=== PATIENT | female | born 1945 | race Two or more races ===

== ENCOUNTER → 2017-08-21 | Outpatient (CLI) | payer MEDICARE, MEDICAID ==
[2017-08-21 12:48] LABS: Urine Bilirubin Negative (Negative); Urine Blood Negative /uL (Negative); Urine Color Yellow (Yellow); Urine Glucose Normal (Normal); Urine Ketone Negative (Negative); Urine Nitrite Negative (Negative); Urine Urobilinogen Normal (Negative); Urine pH 7.5 (5.0-8.0)
[2017-08-21 12:53] LABS: Basophils # (auto) 0 uL; Basophils % (auto) 0.2 % (0.0-2.0); Eosinophils # (auto) 0.1 uL; Eosinophils % (auto) 1.8 % (0.0-7.0); Hematocrit 40.5 % (36.0-46.0); Lymphocytes # (auto) 1.2 uL; Lymphocytes % (auto) 26.8 % (10.0-50.0); Mean Corpuscular Hemoglobin 27.5 pg (28.0-32.0); Mean Corpuscular Volume 85.8 fL (80.0-100.0); Mean Platelet Volume 8.2 fL (6.9-10.8); Monocytes # (auto) 0.4 uL; Monocytes % (auto) 8.3 % (0.0-12.0); Neutrophils # (auto) 2.8 uL; Neutrophils % (auto) 62.9 % (37.0-80.0); Nucleated Red Blood Cells % 0.5 %; Platelet Count (auto) 191 10^3/uL (140-450); Red Cell Distribution Width 15.5 % (11.8-14.3); White Blood Cell 4.5 10^3/uL (4.4-10.8)
[2017-08-21 13:05] LABS: Albumin 3.9 g/dL (3.4-5.0); BUN/Creatinine Ratio 11.4; Calcium 8.9 mg/dL (8.5-10.1); Total Protein 7.2 g/dL (6.4-8.2)
== END | disposition home or self-care (01) ==
LOC: LAB 08:43
PROVIDERS: ATTEND Internal Medicine Cardiovascular Disease
DX: I10 Essential (primary) hypertension (principal); E11.9 Type 2 diabetes mellitus without complications; E55.9 Vitamin D deficiency, unspecified; E78.00 Pure hypercholesterolemia, unspecified; K74.1 Hepatic sclerosis; E03.9 Hypothyroidism, unspecified; D64.9 Anemia, unspecified; N39.0 Urinary tract infection, site not specified; D51.9 Vitamin B12 deficiency anemia, unspecified; R79.1 Abnormal coagulation profile
CPT/HCPCS: 36415; 80053; 80061; 81003; 82306; 82607; 83036; 84436; 84443; 85025

== ENCOUNTER 2017-09-23 23:15 | Emergency (ER) | payer MEDICAID, MEDICARE ==
[~2017-09-23] VITALS: Ht 165.1 cm; Wt 83.9 kg
[2017-09-23 23:55] LABS: Basophils # (auto) 0 uL; Basophils % (auto) 0.5 % (0.0-2.0); Eosinophils # (auto) 0 uL; Eosinophils % (auto) 0.1 % (0.0-7.0); Hematocrit 39.1 % (36.0-46.0); Hemoglobin 12.8 g/dL (12.2-16.2); Lymphocytes # (auto) 0.5 uL; Mean Corpuscular Hemoglobin 27.4 pg (28.0-32.0); Mean Corpuscular Hgb Conc. 32.7 g/dL (32.0-36.0); Mean Corpuscular Volume 83.8 fL (80.0-100.0); Mean Platelet Volume 7.8 fL (6.9-10.8); Monocytes # (auto) 0.4 uL; Monocytes % (auto) 5.5 % (0.0-12.0); Neutrophils # (auto) 6.9 uL; Neutrophils % (auto) 87.9 % (37.0-80.0); Platelet Count (auto) 140 10^3/uL (140-450); Red Cell Distribution Width 15.5 % (11.8-14.3); White Blood Cell 7.9 10^3/uL (4.4-10.8)
[2017-09-24 00:11] LABS: INR 1.39 (0.9-1.15); Partial Thromboplastin Time 34.1 sec (22.64-33.71); Prothrombin Time 15.2 sec (9.37-12.3)
[2017-09-24 00:13] LABS: Albumin 3.3 g/dL (3.4-5.0); Calcium 7.8 mg/dL (8.5-10.1); Potassium 3.3 mmol/L (3.5-5.1)
[2017-09-24 00:14] LABS: Temperature: 21.3 C (20.0-25.0)
[2017-09-24 00:16] LABS: BUN/Creatinine Ratio 13.6; Total Protein 6.9 g/dL (6.4-8.2)
[2017-09-24] MEDS ORDERED: LEVOFLOXACIN 750MG 150 ML IV ONE (01:30)
[2017-09-24] MEDS ORDERED: PROMETHAZINE W/CODEINE 5 ML ORAL SYRUP PO ONE (01:30)
[2017-09-24] MEDS ORDERED: SERT-274 PO (01:36)
[2017-09-24] MEDS ORDERED: DONE5TAB28 PO (01:36)
[2017-09-24] MEDS ORDERED: BISO5TAB44 PO (01:36)
[2017-09-24] MEDS ORDERED: ATOR20TA50 PO (01:36)
[2017-09-24] MEDS ORDERED: WARF3TAB22 PO (01:36)
[2017-09-24] MEDS ORDERED: AMIO200T33 PO (01:36)
[2017-09-24] MEDS ORDERED: HYDR50TA15 PO (01:36)
[2017-09-24] MEDS ORDERED: ACETAMINOPHEN 325 MG TAB PO ONE (02:30)
[2017-09-24] MEDS ORDERED: FUROSEMIDE 20 MG/2 ML VIAL IV ONE ×2 (02:45→03:15)
[2017-09-24] MEDS ORDERED: POTASSIUM CHL 20 Meq TABLET PO ONE (03:15)
[2017-09-24 04:12] VITALS: BP 118/82
== END 2017-09-24 03:23 | disposition home or self-care (01) ==
LOC: ER 23:17
DX: J18.1 Lobar pneumonia, unspecified organism (principal); I48.91 Unspecified atrial fibrillation; I11.0 Hypertensive heart disease with heart failure; I50.9 Heart failure, unspecified; D72.829 Elevated white blood cell count, unspecified; E87.1 Hypo-osmolality and hyponatremia; E87.6 Hypokalemia; K72.90 Hepatic failure, unspecified without coma; Z79.899 Other long term (current) drug therapy
CPT/HCPCS: 36415; 71010; 80053; 83735; 83880; 84484; 85025; 85610; 85730; 93005; 94761; 96365; 96375; 96376; 99285; J1940; J1956

== ENCOUNTER → 2017-10-19 | Outpatient (CLI) | payer MEDICARE, MEDICAID ==
[~2017-10-19] MED LIST: AMIO200T33 PO; ATOR20TA50 PO; BISO5TAB44 PO; DONE5TAB31 PO; HYDR50TA15 PO; SERT-274 PO; WARF2TAB49 PO; WARF3TAB22 PO
== END | disposition home or self-care (01) ==
LOC: Rad HDHVI 07:48
PROVIDERS: ATTEND Internal Medicine Cardiovascular Disease
DX: I36.1 Nonrheumatic tricuspid (valve) insufficiency (principal); I05.0 Rheumatic mitral stenosis; E78.5 Hyperlipidemia, unspecified
CPT/HCPCS: 93306

== ENCOUNTER → 2017-11-02 | Outpatient (CLI) | payer MEDICARE, MEDICAID ==
[~2017-11-02] VITALS: Ht 165.1 cm; Wt 83.9 kg
[~2017-11-02] MED LIST changes: +ADENOSINE 70 MG in GIVE UN-DILUTED 0 ML IV ONE; +ADENOSINE 90 MG/30 ML INJ IV ONE
== END | disposition home or self-care (01) ==
LOC: Rad HDHVI 08:10
PROVIDERS: ATTEND Internal Medicine Cardiovascular Disease
DX: I10 Essential (primary) hypertension (principal); I49.8 Other specified cardiac arrhythmias; E78.5 Hyperlipidemia, unspecified; G30.0 Alzheimer's disease with early onset; Z90.710 Acquired absence of both cervix and uterus; Z86.79 Personal history of other diseases of the circulatory system
CPT/HCPCS: 78452; 93005; 96374; 96375; A9500; J0153

== ENCOUNTER → 2017-12-07 | Outpatient (CLI) | payer MEDICARE, MEDICAID ==
[~2017-12-07] MED LIST changes: -ADENOSINE 70 MG in GIVE UN-DILUTED 0 ML IV ONE; -ADENOSINE 90 MG/30 ML INJ IV ONE
[2017-12-07 08:25] VITALS: BP 156/70
[2017-12-07 08:55] VITALS: BP 156/70
== END | disposition home or self-care (01) ==
LOC: CHF HDHVI 08:19
PROVIDERS: ATTEND Internal Medicine Cardiovascular Disease
DX: I48.91 Unspecified atrial fibrillation (principal); I25.10 Atherosclerotic heart disease of native coronary artery without angina pectoris; I10 Essential (primary) hypertension
CPT/HCPCS: 85610; G0463

== ENCOUNTER → 2017-12-11 | Outpatient (CLI) | payer MEDICARE, MEDICAID ==
[2017-12-11 13:20] VITALS: BP 140/71
[2017-12-11 13:50] VITALS: BP 140/70
[2017-12-11 16:13] LABS: Basophils # (auto) 0 uL; Basophils % (auto) 0.7 % (0.0-2.0); Calcium 8.6 mg/dL (8.5-10.1); Eosinophils # (auto) 0.1 uL; Hematocrit 38.9 % (36.0-46.0); Hemoglobin 12.6 g/dL (12.2-16.2); INR 1.08 (0.9-1.15); Lymphocytes # (auto) 1.1 uL; Lymphocytes % (auto) 21.6 % (10.0-50.0); Mean Corpuscular Hemoglobin 27.3 pg (28.0-32.0); Mean Corpuscular Hgb Conc. 32.3 g/dL (32.0-36.0); Mean Corpuscular Volume 84.4 fL (80.0-100.0); Monocytes # (auto) 0.7 uL; Monocytes % (auto) 12.4 % (0.0-12.0); Neutrophils # (auto) 3.4 uL; Neutrophils % (auto) 64.3 % (37.0-80.0); Nucleated Red Blood Cells % 0.4 %; Platelet Count (auto) 235 10^3/uL (140-450); Potassium 4.1 mmol/L (3.5-5.1); Prothrombin Time 11.8 sec (9.37-12.3); Red Blood Cells 4.61 10^6/uL (4.0-5.20); Red Cell Distribution Width 16.3 % (11.8-14.3); White Blood Cell 5.3 10^3/uL (4.4-10.8)
[2017-12-11 16:15] LABS: BUN/Creatinine Ratio 20.6
== END | disposition home or self-care (01) ==
LOC: Rad HDHVI 13:05
PROVIDERS: ATTEND Internal Medicine Cardiovascular Disease
DX: Z01.818 Encounter for other preprocedural examination (principal); I70.0 Atherosclerosis of aorta; I51.7 Cardiomegaly; D64.9 Anemia, unspecified; R79.1 Abnormal coagulation profile; I10 Essential (primary) hypertension
CPT/HCPCS: 36415; 71046; 80048; 85025; 85610; 85730; 93005; G0463

== ENCOUNTER 2017-12-12 08:49 | Day surgery (SDC) | payer MEDICARE, MEDICAID ==
[~2017-12-12] VITALS: Ht 162.6 cm; Wt 85.0 kg
[2017-12-12] MEDS ORDERED: IOHEXOL 350 MG/ML 100ML IJ ONE (11:05)
[2017-12-12] MEDS ORDERED: LIDOCAINE 2%HCL (LOCAL ANESTH.) INJ 20ML MDV ONE (11:06)
[2017-12-12] MEDS ORDERED: ANGIOMAX 250 MG VIAL IV ONE (11:19)
[2017-12-12] MEDS ORDERED: fentaNYL CITRATE 100 MCG/2 ML VL ONE (11:20)
[2017-12-12] MEDS ORDERED: MIDAZOLAM HCL 1MG/1ML-2 ML VIAL ONE (11:20)
== END 2017-12-12 14:40 | disposition home or self-care (01) ==
LOC: CATH 08:49
PROVIDERS: ATTEND Internal Medicine
DX: I05.0 Rheumatic mitral stenosis (principal); I48.91 Unspecified atrial fibrillation; I10 Essential (primary) hypertension; E78.5 Hyperlipidemia, unspecified; I25.2 Old myocardial infarction
CPT/HCPCS: 93460; C1751; C1760; C1894; J1644; J2250; J3010; J7030; Q9967; 99152; 99153

== ENCOUNTER 2017-12-20 02:14 | Inpatient (IN) | payer MEDICARE, MEDICAID ==
[~2017-12-20] VITALS: Ht 160 cm; Wt 60.5 kg
[2017-12-20 03:04] LABS: Basophils # (auto) 0 uL; Basophils % (auto) 0.5 % (0.0-2.0); Eosinophils # (auto) 0 uL; Eosinophils % (auto) 0.7 % (0.0-7.0); Hematocrit 36.3 % (36.0-46.0); Hemoglobin 11.8 g/dL (12.2-16.2); Lymphocytes # (auto) 0.6 uL; Lymphocytes % (auto) 9.3 % (10.0-50.0); Mean Corpuscular Hemoglobin 27.2 pg (28.0-32.0); Mean Corpuscular Hgb Conc. 32.4 g/dL (32.0-36.0); Mean Corpuscular Volume 83.9 fL (80.0-100.0); Monocytes # (auto) 0.6 uL; Neutrophils # (auto) 5.5 uL; Neutrophils % (auto) 80.5 % (37.0-80.0); Platelet Count (auto) 168 10^3/uL (140-450); Red Blood Cells 4.33 10^6/uL (4.0-5.20); Red Cell Distribution Width 15.4 % (11.8-14.3); White Blood Cell 6.8 10^3/uL (4.4-10.8)
[2017-12-20 03:20] LABS: INR 1.05 (0.9-1.15); Partial Thromboplastin Time 30.6 sec (22.64-33.71); Prothrombin Time 11.4 sec (9.37-12.3)
[2017-12-20 03:22] LABS: Albumin 3.4 g/dL (3.4-5.0); BUN/Creatinine Ratio 15.4; Magnesium 1.8 mg/dL (1.6-2.6); Potassium 3.3 mmol/L (3.5-5.1)
[2017-12-20 03:27] LABS: Bilirubin, Total 1.4 mg/dL (0.2-1.0); Total Protein 6.7 g/dL (6.4-8.2)
[2017-12-20] MEDS ORDERED: ASPirin-EC 325mg tab PO ONE (07:00)
[2017-12-20] MEDS ORDERED: NITROGLYCERIN 0.4MG/HR TOPICAL PATCH TD ONE (07:00)
[2017-12-20] MEDS ORDERED: LORazepam 0.5 MG TAB PO PRN (09:00)
[2017-12-20] MEDS ORDERED: MORPHINE SULFATE 4 MG/ML SYR/VIAL IV PRN ×2 (09:00)
[2017-12-20] MEDS ORDERED: ACETAMINOPHEN 500 MG TAB PO PRN (09:00)
[2017-12-20] MEDS ORDERED: LACTULOSE 20Gm/30ML SOLN PO PRN ×2 (09:00)
[2017-12-20] MEDS ORDERED: PROMETHAZINE HCL 25 MG/ML 1ML IV PRN (09:00)
[2017-12-20] MEDS ORDERED: NITROGLYCERIN 0.4 MG SL TAB SL PRN (09:00)
[2017-12-20] MEDS ORDERED: HYDROcodone-ACET 5/325MG TAB PO PRN (09:00)
[2017-12-20] MEDS ORDERED: TEMAZEPAM 15 MG CAP PO PRN (09:00)
[2017-12-20] MEDS: NITROGLYCERIN 0.2MG/HR TOPICAL PATCH TD SCH (10:00)
[2017-12-20] MEDS ORDERED: ENOXAPARIN SOD 80 MG/0.8ML SYRINGE SC SCH (10:00)
[2017-12-20 10:28] VITALS: BP 173/79
[2017-12-20] MEDS: ASPirin 81 mg TAB PO SCH (11:16)
[2017-12-20] MEDS: AMIODARONE HCL 200 MG TAB PO SCH (11:16)
[2017-12-20] MEDS: FUROSEMIDE 40 MG/4 ML VIAL IV SCH ×2 (11:16→18:00)
[2017-12-20] MEDS: SERTRALINE HCL 50 MG TAB PO SCH (11:17)
[2017-12-20] MEDS: CARVEDILOL 3.125 MG TAB PO SCH ×2 (11:17→21:57)
[2017-12-20] MEDS: ENALAPRIL MALEATE 2.5 MG TAB PO SCH (11:17)
[2017-12-20] MEDS: POTASSIUM CHL 20 Meq TABLET PO SCH (11:17)
[2017-12-20] MEDS: ENOXAPARIN SOD 60 MG/0.6 ML SYRINGE SC SCH ×2 (11:17→21:58)
[2017-12-20 12:00] VITALS: BP 111/59
[2017-12-20] MEDS: SODIUM CHLOR 0.9% PF (SALINE LOCK) 10ML VIAL IV SCH ×2 (14:05→21:57)
[2017-12-20] MEDS ORDERED: ATORVASTATIN 20 MG TAB PO SCH (22:00)
[2017-12-20 22:08] VITALS: BP 131/67
[2017-12-21 04:31] VITALS: BP 141/71
[2017-12-21] MEDS: SODIUM CHLOR 0.9% PF (SALINE LOCK) 10ML VIAL IV SCH (05:37)
[2017-12-21] MEDS: FUROSEMIDE 40 MG/4 ML VIAL IV SCH (05:38)
[2017-12-21 06:48] LABS: Urine Bacteria FEW /hpf (None Seen); Urine Blood Negative /uL (Negative); Urine Mucus FEW (None Seen); Urine Specific Gravity 1.012 (1.001-1.035); Urine WBC 11 /hpf (0 - 5)
[2017-12-21 07:23] LABS: Albumin 3.3 g/dL (3.4-5.0); Bilirubin, Total 1.7 mg/dL (0.2-1.0); Calcium 8.9 mg/dL (8.5-10.1); Potassium 3.2 mmol/L (3.5-5.1); Total Protein 6.5 g/dL (6.4-8.2)
[2017-12-21 07:31] LABS: Basophils # (auto) 0 uL; Basophils % (auto) 0.4 % (0.0-2.0); Eosinophils # (auto) 0 uL; Eosinophils % (auto) 0.5 % (0.0-7.0); Hematocrit 36.5 % (36.0-46.0); Hemoglobin 11.9 g/dL (12.2-16.2); Lymphocytes # (auto) 0.6 uL; Lymphocytes % (auto) 13.9 % (10.0-50.0); Mean Corpuscular Hemoglobin 27.1 pg (28.0-32.0); Mean Corpuscular Hgb Conc. 32.6 g/dL (32.0-36.0); Mean Corpuscular Volume 83.3 fL (80.0-100.0); Monocytes # (auto) 0.5 uL; Monocytes % (auto) 11.2 % (0.0-12.0); Neutrophils # (auto) 3.2 uL; Nucleated Red Blood Cells % 0.1 %; Platelet Count (auto) 174 10^3/uL (140-450); Red Blood Cells 4.39 10^6/uL (4.0-5.20); Red Cell Distribution Width 14.8 % (11.8-14.3); White Blood Cell 4.4 10^3/uL (4.4-10.8)
[2017-12-21 09:00] VITALS: BP 124/67
[2017-12-21] MEDS: NITROGLYCERIN 0.2MG/HR TOPICAL PATCH TD SCH (10:00)
[2017-12-21] MEDS: POTASSIUM CHL 20 Meq TABLET PO SCH (10:01)
[2017-12-21] MEDS: ENOXAPARIN SOD 60 MG/0.6 ML SYRINGE SC SCH (10:01)
[2017-12-21] MEDS: ASPirin 81 mg TAB PO SCH (10:01)
[2017-12-21] MEDS: ENALAPRIL MALEATE 2.5 MG TAB PO SCH (10:02)
[2017-12-21] MEDS: SERTRALINE HCL 50 MG TAB PO SCH (10:02)
[2017-12-21] MEDS: AMIODARONE HCL 200 MG TAB PO SCH (10:03)
[2017-12-21] MEDS: CARVEDILOL 3.125 MG TAB PO SCH (10:04)
[2017-12-21 12:00] VITALS: BP 119/60
[2017-12-21 15:07] VITALS: BP 119/60
== END 2017-12-21 15:38 | disposition home or self-care (01) | DRG 202 ==
LOC: ER 02:16 → TELE 02:17 → TELE-WESTW 09:55
PROVIDERS: ADMIT Internal Medicine; ATTEND Family Medicine
DX: J20.9 Acute bronchitis, unspecified (principal); I20.0 Unstable angina; I48.91 Unspecified atrial fibrillation; I11.0 Hypertensive heart disease with heart failure; I50.9 Heart failure, unspecified; E78.5 Hyperlipidemia, unspecified; D64.9 Anemia, unspecified; I05.0 Rheumatic mitral stenosis; Z82.49 Family history of ischemic heart disease and other diseases of the circulatory system; Z79.899 Other long term (current) drug therapy; Z79.01 Long term (current) use of anticoagulants; Z90.49 Acquired absence of other specified parts of digestive tract
CPT/HCPCS: 36415; 71045; 80053; 80061; 81001; 82550; 83735; 83880; 84443; 84484; 85025; 85379; 85610; 85652; 85730; 86141; 93005

== ENCOUNTER → 2018-11-22 | Outpatient (CLI) | payer MEDICARE, MEDICAID | END | disposition home or self-care (01) | LOC: Rad HDHVI 08:52 | PROVIDERS: ATTEND Internal Medicine | DX: I05.0 Rheumatic mitral stenosis (principal); I10 Essential (primary) hypertension; I48.91 Unspecified atrial fibrillation | CPT/HCPCS: 93306 ==

== ENCOUNTER → 2018-12-04 | Outpatient (CLI) | payer MEDICARE, MEDICAID ==
[~2018-12-04] VITALS: Ht 165.1 cm; Wt 94.3 kg
[~2018-12-04] MED LIST changes: +ADENOSINE 79 MG in GIVE UN-DILUTED 0 ML IV ONE; +ADENOSINE 90 MG/30 ML INJ IV ONE
[2018-12-04 15:57] LABS: Urine Blood Negative /uL (Negative); Urine Specific Gravity 1.013 (1.001-1.035)
[2018-12-04 16:04] LABS: Albumin 3.9 g/dL (3.4-5.0); Calcium 8.9 mg/dL (8.5-10.1); Potassium 3.6 mmol/L (3.5-5.1)
[2018-12-04 16:09] LABS: BUN/Creatinine Ratio 9.5; Bilirubin, Total 2.2 mg/dL (0.2-1.0); Total Protein 7.3 g/dL (6.4-8.2)
[2018-12-04 16:11] LABS: Basophils # (auto) 0 uL; Basophils % (auto) 0.5 % (0.0-2.0); Eosinophils # (auto) 0.1 uL; Eosinophils % (auto) 1.4 % (0.0-7.0); Free T4 (Free Thyroxine) 1.28 ng/dL (0.89-1.76); Hematocrit 41.8 % (36.0-46.0); Hemoglobin 13.8 g/dL (12.2-16.2); Lymphocytes # (auto) 1.9 uL; Lymphocytes % (auto) 32.7 % (10.0-50.0); Mean Corpuscular Hemoglobin 28.3 pg (28.0-32.0); Mean Corpuscular Volume 85.9 fL (80.0-100.0); Monocytes # (auto) 0.5 uL; Monocytes % (auto) 8.2 % (0.0-12.0); Neutrophils # (auto) 3.4 uL; Neutrophils % (auto) 57.2 % (37.0-80.0); Nucleated Red Blood Cells % 0.3 %; Platelet Count (auto) 187 10^3/uL (140-450); Red Blood Cells 4.87 10^6/uL (4.0-5.20); Red Cell Distribution Width 15.4 % (11.8-14.3); White Blood Cell 5.9 10^3/uL (4.4-10.8)
== END | disposition home or self-care (01) ==
LOC: Rad HDHVI 08:43
PROVIDERS: ATTEND Internal Medicine
DX: I10 Essential (primary) hypertension (principal); E78.5 Hyperlipidemia, unspecified; E03.9 Hypothyroidism, unspecified; E11.9 Type 2 diabetes mellitus without complications; E55.9 Vitamin D deficiency, unspecified; D51.9 Vitamin B12 deficiency anemia, unspecified; N39.0 Urinary tract infection, site not specified
CPT/HCPCS: 36415; 78452; 80053; 80061; 81003; 82306; 82607; 83036; 84439; 84443; 85025; 87086; 93005; 96374; 96375; A9500; J0153

== ENCOUNTER 2019-03-01 00:25 | Emergency (ER) | payer MEDICARE, MEDICAID ==
[~2019-03-01] VITALS: Ht 167.6 cm; Wt 86.2 kg
[~2019-03-01 00:25] MED LIST changes: -ADENOSINE 79 MG in GIVE UN-DILUTED 0 ML IV ONE; -ADENOSINE 90 MG/30 ML INJ IV ONE
[2019-03-01 02:38] LABS: Basophils # (auto) 0 uL; Basophils % (auto) 0.4 % (0.0-2.0); Eosinophils # (auto) 0.1 uL; Eosinophils % (auto) 0.8 % (0.0-7.0); Hemoglobin 13.2 g/dL (12.2-16.2); Lymphocytes # (auto) 1.9 uL; Lymphocytes % (auto) 20.8 % (10.0-50.0); Mean Corpuscular Hemoglobin 28.2 pg (28.0-32.0); Mean Corpuscular Volume 85.5 fL (80.0-100.0); Monocytes # (auto) 0.9 uL; Monocytes % (auto) 9.1 % (0.0-12.0); Neutrophils # (auto) 6.4 uL; Neutrophils % (auto) 68.9 % (37.0-80.0); Nucleated Red Blood Cells % 0.4 %; Platelet Count (auto) 228 10^3/uL (140-450); Red Blood Cells 4.68 10^6/uL (4.0-5.20); White Blood Cell 9.3 10^3/uL (4.4-10.8)
[2019-03-01 03:02] LABS: Alkaline Phosphatase 111 U/L (45-117); Bilirubin, Total 1.2 mg/dL (0.2-1.0); Total Protein 6.5 g/dL (6.4-8.2)
[2019-03-01 03:04] LABS: Anion Gap 8 (5-15); Carbon Dioxide 26 mmol/L (21-32); Chloride 97 mmol/L (98-107); Potassium 3.5 mmol/L (3.5-5.1); Sodium 131 mmol/L (136-145)
[2019-03-01 03:05] LABS: Alanine Aminotransferase 173 U/L (13-56); Albumin 3.4 g/dL (3.4-5.0); Aspartate Aminotransferase 131 U/L (15-37); BUN/Creatinine Ratio 17.4; Blood Alcohol < 3.0 mg/dL (0-5); Blood Urea Nitrogen 15 mg/dL (7-18); Calcium 8.5 mg/dL (8.5-10.1); GFR African American 83 mL/min; GFR Non-African American 68 mL/min; Glucose 86 mg/dL (74-106); Magnesium 2.2 mg/dL (1.6-2.6)
[2019-03-01 09:31] LABS: Urine Bacteria NONE SEEN /hpf (None Seen); Urine Blood Negative /uL (Negative); Urine Specific Gravity 1.006 (1.001-1.035); Urine WBC <1 /hpf (0 - 5)
[2019-03-01 09:44] LABS: Alcohol, Urine < 3.0 mg/dL (0-5); Amphetamine Screen, Urine NEGATIVE (NEGATIVE); Barbiturate Scree,Urine NEGATIVE (NEGATIVE); Benzodiazephine Screen, Urine NEGATIVE (NEGATIVE); Cannabinoid Screen, Urine NEGATIVE (NEGATIVE); Cocaine Screen, Urine NEGATIVE (NEGATIVE); Opiate Scree,Urine NEGATIVE (NEGATIVE); Phencyclidine Screen, Urine NEGATIVE (NEGATIVE)
[2019-03-01 12:28] VITALS: BP 150/85
== END 2019-03-01 12:44 | disposition home or self-care (01) ==
LOC: EDBD 00:25 → ER 00:29 → MERGE 00:29 → ER 12:44
DX: G30.0 Alzheimer's disease with early onset (principal); F02.80 Dementia in other diseases classified elsewhere, unspecified severity, without behavioral disturbance, psychotic disturbance, mood disturbance, and anxiety; I10 Essential (primary) hypertension; E11.9 Type 2 diabetes mellitus without complications; I25.10 Atherosclerotic heart disease of native coronary artery without angina pectoris; R74.8 Abnormal levels of other serum enzymes; E66.9 Obesity, unspecified; Z68.30 Body mass index [BMI] 30.0-30.9, adult
CPT/HCPCS: 36415; 70450; 80053; 80307; 80320; 81001; 83605; 83735; 84484; 85025

== ENCOUNTER → 2019-06-04 | Outpatient (CLI) | payer MEDICARE, MEDICAID ==
--- NOTE | 2019-06-04 08:40 | NUR ---
CHF PT ARRIVED AT THE [facility]IN[facility] FOR TX , F/U A/O X 3 0 DISTRESS VSS STABLE. PT DAUGHTER REPORTED BLOOD PRESSURE LOW YESTERDAY. ADVISED TO HOLD MEDS LAST NIGHT. PRESSURE THIS AM 140/67.
[2019-06-04 09:06] VITALS: BP 140/67
[2019-06-04 09:15] VITALS: BP 121/59
--- NOTE | 2019-06-04 09:15 | NUR ---
Discharge Instructions See e-MAR for any mediations given with this visit. Patient education given on disease process. Patient verbalized understanding. Previous labs reviewed. Patient discharged in stable condition with after care instructions and follow up appointment. NOTE DAUGHTER GIVEN INSTRUCTIONS THROUGH REED FIXER TO TAKE HER HCTZ AND DONAZEPRIL QOD UNTIL RETURN TO CLINIC FOR PREOP ON 06/16. DAUGHTER INSTRUCTED TO BRING ALL MEDICATIONS TO PREOP APPT.
== END | disposition home or self-care (01) ==
LOC: CHF HDHVI 08:36
PROVIDERS: ATTEND Internal Medicine Cardiovascular Disease
DX: I10 Essential (primary) hypertension (principal)
CPT/HCPCS: G0463

== ENCOUNTER → 2019-06-16 | Outpatient (CLI) | payer MEDICARE, MEDICAID ==
[~2019-06-16] MED LIST changes: +APIX5TAB PO; +HYDR12.56 PO
[2019-06-16 09:10] VITALS: BP 124/70
[2019-06-16 09:40] VITALS: BP 116/66
--- NOTE | 2019-06-16 09:40 | NUR ---
IN FOR PRE-OP FOR LEFT AND RIGHT HEART CATH FOR 06/18/19. Pre-Op Discharge Summary: See e-MAR for any medications given for this visit. Pre-op orders received and carried out per MD of EKG, LABS and chest xrays. Patient given a copy of EKG with instructions to go to [facility] out patient for further follow up care.
[2019-06-16 12:31] LABS: BUN/Creatinine Ratio 8.8; Calcium 8.6 mg/dL (8.5-10.1); Potassium 3.8 mmol/L (3.5-5.1)
[2019-06-16 12:33] LABS: Basophils # (auto) 0 uL; Basophils % (auto) 0.4 % (0.0-2.0); Eosinophils # (auto) 0.1 uL; Eosinophils % (auto) 2.7 % (0.0-7.0); Hematocrit 39.2 % (36.0-46.0); Hemoglobin 12.8 g/dL (12.2-16.2); Lymphocytes # (auto) 1.1 uL; Lymphocytes % (auto) 25.7 % (10.0-50.0); Mean Corpuscular Hemoglobin 28.3 pg (28.0-32.0); Mean Corpuscular Hgb Conc. 32.7 g/dL (32.0-36.0); Mean Corpuscular Volume 86.6 fL (80.0-100.0); Monocytes # (auto) 0.4 uL; Monocytes % (auto) 8.5 % (0.0-12.0); Neutrophils # (auto) 2.8 uL; Neutrophils % (auto) 62.7 % (37.0-80.0); Platelet Count (auto) 184 10^3/uL (140-450); Red Blood Cells 4.53 10^6/uL (4.0-5.20); Red Cell Distribution Width 15.3 % (11.8-14.3); White Blood Cell 4.4 10^3/uL (4.4-10.8)
[2019-06-16 12:36] LABS: INR 1.06 (0.9-1.15)
== END | disposition home or self-care (01) ==
LOC: Rad HDHVI 08:58
PROVIDERS: ATTEND Internal Medicine
DX: Z01.812 Encounter for preprocedural laboratory examination (principal); I05.0 Rheumatic mitral stenosis; I10 Essential (primary) hypertension; D64.1 Secondary sideroblastic anemia due to disease; R79.1 Abnormal coagulation profile; E78.5 Hyperlipidemia, unspecified
CPT/HCPCS: 36415; 80048; 85025; 85610; 85730; 93005; G0463

== ENCOUNTER 2019-06-18 08:03 | Day surgery (SDC) | payer MEDICARE, MEDICAID ==
[~2019-06-18] VITALS: Ht 165.1 cm; Wt 83.9 kg
[~2019-06-18 08:03] MED LIST changes: -WARF2TAB49 PO; -WARF3TAB22 PO
[2019-06-18] MEDS ORDERED: LIDOCAINE 2%HCL (LOCAL ANESTH.) INJ 20ML MDV ONE (08:21)
[2019-06-18] MEDS ORDERED: IOHEXOL 350 MG/ML 100ML IJ ONE (08:53)
[2019-06-18] MEDS ORDERED: ANGIOMAX 250 MG VIAL IV ONE (09:21)
[2019-06-18] MEDS ORDERED: MIDAZOLAM HCL 1MG/1ML-2 ML VIAL ONE (09:21)
[2019-06-18] MEDS ORDERED: SODIUM CHL 0.9% 0 ML ONE (09:21)
[2019-06-18] MEDS ORDERED: fentaNYL CITRATE 100 MCG/2 ML VL ONE (09:21)
[2019-06-18] MEDS ORDERED: HYDROcodone-ACET 5/325MG TAB PO PRN (10:30)
[2019-06-18] MEDS ORDERED: ACETAMINOPHEN 500 MG TAB PO PRN (10:30)
== END 2019-06-18 12:27 | disposition home or self-care (01) ==
LOC: CATH 08:03
PROVIDERS: ATTEND Internal Medicine
DX: R07.89 Other chest pain (principal); I10 Essential (primary) hypertension; E78.00 Pure hypercholesterolemia, unspecified; I48.91 Unspecified atrial fibrillation; F03.90 Unspecified dementia, unspecified severity, without behavioral disturbance, psychotic disturbance, mood disturbance, and anxiety; Z79.899 Other long term (current) drug therapy; Z98.890 Other specified postprocedural states
CPT/HCPCS: 93460; C1751; C1760; C1769; C1894; J1644; J2250; J3010; Q9967; 99152; 99153

== ENCOUNTER 2019-07-11 13:09 | Emergency (ER) | payer MEDICARE, MEDICAID ==
[~2019-07-11] VITALS: Ht 162.6 cm; Wt 93.0 kg
[2019-07-11 13:24] VITALS: BP 139/62
[2019-07-11] MEDS ORDERED: ACETAMINOPHEN 325 MG TAB PO ONE (16:30)
== END 2019-07-11 16:42 | disposition home or self-care (01) ==
LOC: ER 13:09
DX: M17.11 Unilateral primary osteoarthritis, right knee (principal); I48.91 Unspecified atrial fibrillation; I10 Essential (primary) hypertension
CPT/HCPCS: 73562; 93971

== ENCOUNTER → 2019-07-28 | Day surgery (SDC) | payer MEDICARE, MEDICAID ==
[2019-07-25 10:31] LABS: Basophils # (auto) 0 uL; Basophils % (auto) 0.7 % (0.0-2.0); Eosinophils # (auto) 0.1 uL; Eosinophils % (auto) 1.1 % (0.0-7.0); Hematocrit 40.9 % (36.0-46.0); Hemoglobin 13.6 g/dL (12.2-16.2); Lymphocytes # (auto) 1.3 uL; Lymphocytes % (auto) 23.2 % (10.0-50.0); Mean Corpuscular Hemoglobin 28.6 pg (28.0-32.0); Mean Corpuscular Hgb Conc. 33.2 g/dL (32.0-36.0); Mean Corpuscular Volume 86.1 fL (80.0-100.0); Monocytes # (auto) 0.4 uL; Monocytes % (auto) 7.4 % (0.0-12.0); Neutrophils # (auto) 3.9 uL; Neutrophils % (auto) 67.6 % (37.0-80.0); Platelet Count (auto) 193 10^3/uL (140-450); Red Blood Cells 4.75 10^6/uL (4.0-5.20); Red Cell Distribution Width 15.5 % (11.8-14.3); White Blood Cell 5.8 10^3/uL (4.4-10.8)
[2019-07-25 10:47] LABS: INR 0.99 (0.9-1.15); Partial Thromboplastin Time 28.2 sec (23.64-32.05)
[~2019-07-28] VITALS: Ht 160 cm; Wt 88.5 kg
[~2019-07-28] MED LIST changes: +LIDOCAINE VISCOUS 2% 15ML UD ONE; +SODIUM CHLORIDE LOCK 10 ML ONE; +diphenhdrAMINE HCL 50 MG/1 ML VL ONE
[2019-07-28] MEDS: MIDAZOLAM HCL 5 MG/ML-1ML VIAL ONE ×2 (10:07→10:14)
[2019-07-28] MEDS: fentaNYL CITRATE 100 MCG/2 ML VL ONE ×2 (10:07→10:14)
[2019-07-28 11:10] VITALS: BP 136/61
== END | disposition home or self-care (01) ==
LOC: SUR 08:37
PROVIDERS: ATTEND Internal Medicine Gastroenterology
DX: D12.3 Benign neoplasm of transverse colon (principal); K29.50 Unspecified chronic gastritis without bleeding; K29.80 Duodenitis without bleeding; K64.8 Other hemorrhoids; K57.30 Diverticulosis of large intestine without perforation or abscess without bleeding; I10 Essential (primary) hypertension; Z86.010 Personal history of colon polyps; Z98.890 Other specified postprocedural states; Z79.899 Other long term (current) drug therapy; Z87.59 Personal history of other complications of pregnancy, childbirth and the puerperium; Z79.01 Long term (current) use of anticoagulants
CPT/HCPCS: 36415; 43239; 45380; 85025; 85610; 85730; 88305; 88342; J2250; J3010; J7030; 99153; G0500

== ENCOUNTER → 2019-09-16 | Outpatient (CLI) | payer MEDICARE, MEDICAID ==
[~2019-09-16] MED LIST changes: -LIDOCAINE VISCOUS 2% 15ML UD ONE; -SODIUM CHLORIDE LOCK 10 ML ONE; -diphenhdrAMINE HCL 50 MG/1 ML VL ONE
== END | disposition home or self-care (01) ==
LOC: LAB 08:36
PROVIDERS: ATTEND Internal Medicine
DX: K90.9 Intestinal malabsorption, unspecified (principal)
CPT/HCPCS: 82306

== ENCOUNTER 2019-12-13 22:12 | Inpatient (IN) | payer MEDICARE, MEDICAID ==
[~2019-12-13] VITALS: Ht 167.6 cm; Wt 85.4 kg
[2019-12-13 23:53] LABS: Basophils # (auto) 0 10 ^3/uL (0-0.2); Basophils % (auto) 0.3 % (0.0-2.0); Eosinophils # (auto) 0 10 ^3/uL (0-0.8); Hematocrit 39.6 % (36.0-46.0); Hemoglobin 12.9 g/dL (12.2-16.2); Lymphocytes # (auto) 0.9 10 ^3/uL (0.4-5.4); Lymphocytes % (auto) 7.4 % (10.0-50.0); Mean Corpuscular Hemoglobin 28.5 pg (28.0-32.0); Mean Corpuscular Hgb Conc. 32.5 g/dL (32.0-36.0); Mean Corpuscular Volume 87.5 fL (80.0-100.0); Monocytes # (auto) 0.6 10 ^3/uL (0-1.3); Monocytes % (auto) 4.8 % (0.0-12.0); Neutrophils # (auto) 10.8 10 ^3/uL (1.6-8.6); Neutrophils % (auto) 87.5 % (37.0-80.0); Platelet Count (auto) 214 10^3/uL (140-450); Red Blood Cells 4.53 10^6/uL (4.0-5.20); Red Cell Distribution Width 14.9 % (11.8-14.3); White Blood Cell 12.3 10^3/uL (4.4-10.8)
[2019-12-14] VITALS (7 sets, daily range): BP systolic 139–146; BP diastolic 59–73
[2019-12-14 00:09] LABS: INR 1.07 (0.9-1.15); Partial Thromboplastin Time 32.8 sec (23.64-32.05)
[2019-12-14 00:13] LABS: Albumin 3.6 g/dL (3.4-5.0); BUN/Creatinine Ratio 9.9; Calcium 8.4 mg/dL (8.5-10.1); Potassium 3.3 mmol/L (3.5-5.1)
[2019-12-14] MEDS ORDERED: levoFLOXacin 750MG 150 ML IV ONE (00:30)
[2019-12-14] MEDS ORDERED: FUROSEMIDE 20 MG/2 ML VIAL IV ONE (01:45)
[2019-12-14] MEDS ORDERED: POTASSIUM CHL 20 Meq TABLET PO ONE (02:00)
[2019-12-14] MEDS ORDERED: DEXTROSE (50%) 50ML SYRG IV PRN ×2 (03:45→13:30)
[2019-12-14] MEDS ORDERED: IPRATROPIUM BROM 0.5 MG/2.5ML INH SOL NEB PRN (03:45)
[2019-12-14] MEDS ORDERED: ALBUTEROL SULF 2.5 MG/0.5ML(0.5%) NEB SOLN NEB PRN (03:45)
[2019-12-14] MEDS: InsuLIN REG 1unit/0.01ml Soln (100units/ml) SC SCH ×5 (04:00→23:46)
[2019-12-14] MEDS: ACCU-CHEK COMFORT CURVE STRIP VI SCH ×5 (04:26→23:46)
[2019-12-14] MEDS ORDERED: SODIUM CHLORIDE 0.9% 1,000 ML IV SCH (04:34)
[2019-12-14] MEDS ORDERED: HYDROcodone-ACET 5/325MG TAB PO PRN (04:45)
[2019-12-14] MEDS ORDERED: MORPHINE SULF INJ 2 MG/ML SYRINGE 1ML IV PRN ×2 (04:45→13:15)
[2019-12-14] MEDS ORDERED: MORPHINE SULFATE 4 MG/ML SYR/VIAL IV PRN (04:45)
[2019-12-14] MEDS ORDERED: DOCUSATE SOD 100 MG CAP PO PRN (04:45)
[2019-12-14] MEDS ORDERED: ACETAMINOPHEN 325 MG TAB PO PRN (04:45)
[2019-12-14] MEDS ORDERED: NITROGLYCERIN 0.4 MG SL TAB SL PRN (04:45)
[2019-12-14] MEDS ORDERED: ONDANSETRON HCL 4 MG/2 ML VIAL IV PRN (04:45)
--- NOTE | 2019-12-14 05:31 | NUR ---
Telemetry admit from ER THU STEWART admitted to Telemetry unit after SBAR received. Patient oriented to ESTUARDO ESPINO RN primary RN, unit, room, bed, and unit policies regarding patient care and visiting hours. Patient now on continuous telemetry monitoring, tele box BOX 7 and telemetry reading on arrival to unit is SR 60HR. Patient placed on bedside weighed by bedscale and encouraged to call if they need something. All questions and concerns addressed, patient verbalized understanding. BED IN LOW POSITION AND CALL LIGHT WITHIN REACH BED ALARM ON
[2019-12-14] MEDS: hydrALAZINE HCL 25 MG TAB PO SCH ×3 (05:51→21:17)
[2019-12-14] MEDS ORDERED: PANT40TA2 PO (06:42)
--- NOTE | 2019-12-14 07:12 | NUR ---
report given to dayshift rn patient denies sob/distress or pain. bed alarm on. bed in low position call light within reach. daughter at bedside.
[2019-12-14 08:28] LABS: Basophils # (auto) 0 10 ^3/uL (0-0.2); Basophils % (auto) 0.2 % (0.0-2.0); Eosinophils # (auto) 0 10 ^3/uL (0-0.8); Eosinophils % (auto) 0.1 % (0.0-7.0); Hematocrit 38.6 % (36.0-46.0); Hemoglobin 12.6 g/dL (12.2-16.2); Lymphocytes # (auto) 1.8 10 ^3/uL (0.4-5.4); Lymphocytes % (auto) 17.2 % (10.0-50.0); Mean Corpuscular Hemoglobin 28.3 pg (28.0-32.0); Mean Corpuscular Hgb Conc. 32.7 g/dL (32.0-36.0); Mean Corpuscular Volume 86.7 fL (80.0-100.0); Monocytes # (auto) 0.7 10 ^3/uL (0-1.3); Monocytes % (auto) 6.5 % (0.0-12.0); Neutrophils # (auto) 8.1 10 ^3/uL (1.6-8.6); Platelet Count (auto) 199 10^3/uL (140-450); Red Blood Cells 4.45 10^6/uL (4.0-5.20); Red Cell Distribution Width 14.9 % (11.8-14.3); White Blood Cell 10.7 10^3/uL (4.4-10.8)
[2019-12-14 08:54] LABS: BUN/Creatinine Ratio 9.1; Calcium 8.6 mg/dL (8.5-10.1); Potassium 3.3 mmol/L (3.5-5.1)
[2019-12-14] MEDS: ATORVASTATIN 20 MG TAB PO SCH (10:26)
[2019-12-14] MEDS: APIXABAN 5 MG TAB PO SCH ×2 (10:37→21:18)
[2019-12-14] MEDS: AMIODARONE HCL 200 MG TAB PO SCH (10:39)
[2019-12-14] MEDS: HCTZ 25 MG TAB PO SCH (10:40)
[2019-12-14] MEDS: methylPREDNISolone SOD SUCC 125 MG/2 ML VL IV SCH (10:40)
[2019-12-14] MEDS: FUROSEMIDE 40 MG/4 ML VIAL IV SCH (10:41)
--- NOTE | 2019-12-14 13:13 | NUR ---
DR WONG SAW PATIENT AND DAUGHTER AND DISCUSSED POC. NEW ORDERS FOR ACCUCHECKS Q 6, DC FLUIDS, POTASSIUM, CALL IN CARDIO CONSULT TO HANK, HISTOPATHOLOGIST NOTIFIED. 1 LUIS MIGUEL MORALES NOW.
[2019-12-14] MEDS ORDERED: cefTRIAXone 1GM/50ML D5W 50 ML IV ONE (13:15)
[2019-12-14] MEDS: SERTRALINE HCL 50 MG TAB PO SCH (18:45)
--- NOTE | 2019-12-14 19:30 | NUR ---
PT ASSESSED, BS CLEAR BILATERALLY, NO SOB NOTED
--- NOTE | 2019-12-14 20:00 | NUR ---
Opening Shift Note Assumed care of patient, awake and alert. No S/S of distress/SOB or pain. Instructed on POC to patient and daughter and to call for assist PRN, will continue to monitor for changes Q1hr and PRN. bed alarm on bed ion low position and call light within reach.
[2019-12-14] MEDS: DONEPEZIL HYDROCHLORIDE 5 MG TAB PO SCH (21:18)
--- NOTE | 2019-12-15 04:24 | NUR ---
patient provided with new gown and assisted to restroom
[2019-12-15 05:00] VITALS: BP 153/58
[2019-12-15] MEDS: ACCU-CHEK COMFORT CURVE STRIP VI SCH ×4 (05:30→23:52)
[2019-12-15] MEDS: hydrALAZINE HCL 25 MG TAB PO SCH ×3 (05:30→22:43)
[2019-12-15] MEDS: InsuLIN REG 1unit/0.01ml Soln (100units/ml) SC SCH ×4 (05:31→23:53)
--- NOTE | 2019-12-15 07:00 | NUR ---
PATIENT ASLEEP UPON ENTERING THE ROOM, EASILY AROUSED. PATIENT IS ALERT AND ORIENTED, ABLE TO MAKE NEEDS KNOWN. UNLABORED BREATHING ON ROOM AIR, DENIES PAIN OR DISCOMFORT. PLAN OF CARE EXPLAINED TO PATIENT, REINFORCED THE USE OF CALL LIGHT. EXPLAINED TO PATIENT TO CALL BEFORE GETTING OUT OF BED. BED ON LOWEST POSITION, SIDE RAILS UP X2, CALL LIGHT WITH IN REACH.
--- NOTE | 2019-12-15 07:12 | NUR ---
Respiratory note: PRN MED NEB TX NOT INDICATED AT THIS TIME. HR 53, RR 14, SPO2 96% ON RA, BS CLEAR/DIMINISHED. NO SIGNS OR SYMPTOMS OF RESPIRATORY DISTRESS NOTED AT THIS TIME. PT IS NEPALI SPEAKING ONLY. TRIED TO INFORM PT BEST I COULD TO HIT CALL BUTTON IF FEELING SOB OR WHEEZING.
--- NOTE | 2019-12-15 07:22 | NUR ---
report given to dayshift rn patient denies sob distress or pain. bed alarm on bed in low position and call light within reach
[2019-12-15 09:00] VITALS: BP 122/50
[2019-12-15] MEDS: cefTRIAXone 1GM/50ML D5W 50 ML IV SCH (09:11)
[2019-12-15] MEDS: methylPREDNISolone SOD SUCC 125 MG/2 ML VL IV SCH (09:13)
[2019-12-15] MEDS: FUROSEMIDE 40 MG/4 ML VIAL IV SCH (09:14)
[2019-12-15] MEDS: POTASSIUM CHL 20 Meq TABLET PO SCH (09:14)
[2019-12-15] MEDS: ATORVASTATIN 20 MG TAB PO SCH (09:15)
[2019-12-15] MEDS: APIXABAN 5 MG TAB PO SCH ×2 (09:15→22:42)
[2019-12-15] MEDS: HCTZ 25 MG TAB PO SCH (09:15)
[2019-12-15] MEDS: AMIODARONE HCL 200 MG TAB PO SCH (09:16)
--- NOTE | 2019-12-15 09:55 | NUR ---
IV ON RIGHT FOREARM WAS INFILTRATED, MEDICATION WILL BE GIVEN AT A LATER TIME AFTER IV ACCESS IS ESTABLISHED. FAMILY AT BED SIDE.
--- NOTE | 2019-12-15 10:48 | NUR ---
IV insertion IV access obtained, via clean sterile technique by inserting 22 gauge catheter at left hand after 1 attempt . IV secured properly. No trauma to site. Patient tolerated procedure well.
--- NOTE | 2019-12-15 11:19 | NUR ---
dr williamson saw the patient, explained plan of care to patient and family. patient and family understood plan, I was the general assembler installer during the visit. Paged Dr Muller. awaiting call back.
--- NOTE | 2019-12-15 12:36 | NUR ---
DR MCKINNEY CALLED BACK, HE IS AWARE OF CARDIO CONSULT.
--- NOTE | 2019-12-15 12:44 | NUR ---
PATIENT GOT UP AND WALKED TO THE BATHROOM TWO TIMES TODAY WITH HER DAUGHTER
[2019-12-15 13:00] VITALS: BP 132/71
--- NOTE | 2019-12-15 14:22 | NUR ---
Social Service consult regarding Advance Directives. Provided pt with information on Advance Directive and Durable Power of Supervisor [employer] Form. Pt verbalized understanding and accepted information. Will contact Financial Management Analyst for any further concerns or issues.
[2019-12-15 17:00] VITALS: BP_SYST 113; BP_SYST 120; BP_DIAS 60; BP_DIAS 73
[2019-12-15] MEDS: SERTRALINE HCL 50 MG TAB PO SCH (18:22)
--- NOTE | 2019-12-15 18:24 | NUR ---
Respiratory note: NO PRN TX GIVEN AT THIS TIME, NOT INDICATED. PT RESTING COMFORTABLY, NO SOB NOTED. SPO2 95% ON R/A, HR 71, RR 18.
[2019-12-15 20:00] VITALS: BP 127/60
--- NOTE | 2019-12-15 20:00 | NUR ---
Opening Shift Note Assumed care of patient, awake and alert. No S/S of distress/SOB or pain. Instructed on POC and to call for assist PRN, will continue to monitor for changes Q1hr and PRN.
[2019-12-15 22:00] VITALS: BP 127/60
[2019-12-15] MEDS: DONEPEZIL HYDROCHLORIDE 5 MG TAB PO SCH (22:42)
[2019-12-16 05:00] VITALS: BP 146/60
[2019-12-16] MEDS: ACCU-CHEK COMFORT CURVE STRIP VI SCH (05:47)
[2019-12-16] MEDS: InsuLIN REG 1unit/0.01ml Soln (100units/ml) SC SCH (05:48)
[2019-12-16] MEDS: hydrALAZINE HCL 25 MG TAB PO SCH (05:55)
--- NOTE | 2019-12-16 07:00 | NUR ---
PATIENT ASLEEP, UNLABORED BREATHING, NO SIGNS OF DISTRESS. CALL LIGHT WITH IN REACH, BED ON LOWEST POSITION, SIDE RAILS UP X2
[2019-12-16 09:00] VITALS: BP 121/60
[2019-12-16] MEDS: cefTRIAXone 1GM/50ML D5W 50 ML IV SCH (09:45)
[2019-12-16] MEDS: FUROSEMIDE 40 MG/4 ML VIAL IV SCH (09:47)
[2019-12-16] MEDS: methylPREDNISolone SOD SUCC 125 MG/2 ML VL IV SCH (09:47)
[2019-12-16] MEDS: POTASSIUM CHL 20 Meq TABLET PO SCH (09:48)
[2019-12-16] MEDS: APIXABAN 5 MG TAB PO SCH (09:48)
[2019-12-16] MEDS: ATORVASTATIN 20 MG TAB PO SCH (09:48)
[2019-12-16] MEDS: AMIODARONE HCL 200 MG TAB PO SCH (09:48)
[2019-12-16] MEDS: HCTZ 25 MG TAB PO SCH (09:49)
[2019-12-16 11:07] VITALS: BP 138/64
--- NOTE | 2019-12-16 11:25 | NUR ---
Respiratory note: ASSESSED PT FOR PRN BREATHING TX. PT IS AWAKE AND ALERT. NO RESPIRATORY DISTRESS NOTED OR STATED. PT IS ON ROOM AIR, SPO2 >92%. ALL VITALS ARE STABLE, PT AND FAMILY IS AWARE TO HAVE RT PAGED IF BREATHING TX IS NEEDED. WILL CONTINUE TO MONITOR PT.
--- NOTE | 2019-12-16 13:08 | NUR ---
PATIENT WAS DISCHARGED HOME WITH DAUGHTER. ALL INFORMATION GIVEN AND EXPLAINED TO DAUGHTER AND PATIENT. LEFT THE UNIT IN A WHEEL CHAIR, UNLABORED BREATHING WITH NO SIGNS OF DISTRESS. ALL BELONGINGS TAKEN BY DAUGHTER.
== END 2019-12-16 12:00 | disposition home or self-care (01) | DRG 291 ==
LOC: ER 22:15 → TELE-EAST 22:16
PROVIDERS: ADMIT Hospitalist; ATTEND Family Medicine
DX: I11.0 Hypertensive heart disease with heart failure (principal); J18.9 Pneumonia, unspecified organism; J96.00 Acute respiratory failure, unspecified whether with hypoxia or hypercapnia; J96.20 Acute and chronic respiratory failure, unspecified whether with hypoxia or hypercapnia; E87.1 Hypo-osmolality and hyponatremia; I50.43 Acute on chronic combined systolic (congestive) and diastolic (congestive) heart failure; E87.6 Hypokalemia; R73.9 Hyperglycemia, unspecified; I50.9 Heart failure, unspecified; J20.8 Acute bronchitis due to other specified organisms; E78.5 Hyperlipidemia, unspecified; F03.90 Unspecified dementia, unspecified severity, without behavioral disturbance, psychotic disturbance, mood disturbance, and anxiety; F32.9 Major depressive disorder, single episode, unspecified; I48.91 Unspecified atrial fibrillation; E78.00 Pure hypercholesterolemia, unspecified; E66.9 Obesity, unspecified; Z68.30 Body mass index [BMI] 30.0-30.9, adult
CPT/HCPCS: 36415; 71046; 80048; 80053; 82962; 83036; 83735; 83880; 84484; 85025; 85610; 85730; 87040; 93005; 93306; 96365; 96366; 96375; G0378; J0696; J1956

== ENCOUNTER → 2019-12-29 | Outpatient (CLI) | payer MEDICARE, MEDICAID ==
[~2019-12-29] MED LIST changes: +PANT40TA2 PO
[2019-12-29 11:51] LABS: Basophils # (auto) 0 10 ^3/uL (0-0.2); Basophils % (auto) 0.6 % (0.0-2.0); Eosinophils # (auto) 0.1 10 ^3/uL (0-0.8); Hematocrit 39.4 % (36.0-46.0); Hemoglobin 13.1 g/dL (12.2-16.2); Lymphocytes # (auto) 1.2 10 ^3/uL (0.4-5.4); Lymphocytes % (auto) 24.7 % (10.0-50.0); Mean Corpuscular Hemoglobin 28.7 pg (28.0-32.0); Mean Corpuscular Hgb Conc. 33.2 g/dL (32.0-36.0); Mean Corpuscular Volume 86.3 fL (80.0-100.0); Monocytes # (auto) 0.4 10 ^3/uL (0-1.3); Monocytes % (auto) 8.4 % (0.0-12.0); Neutrophils # (auto) 3.2 10 ^3/uL (1.6-8.6); Neutrophils % (auto) 64.3 % (37.0-80.0); Nucleated Red Blood Cells % 0.1 %; Platelet Count (auto) 188 10^3/uL (140-450); Red Blood Cells 4.56 10^6/uL (4.0-5.20); Red Cell Distribution Width 14.6 % (11.8-14.3)
[2019-12-29 12:09] LABS: Albumin 3.4 g/dL (3.4-5.0); Calcium 8.8 mg/dL (8.5-10.1); Potassium 3.4 mmol/L (3.5-5.1)
[2019-12-29 12:14] LABS: BUN/Creatinine Ratio 5.5; Bilirubin, Total 1.8 mg/dL (0.2-1.0); Total Protein 6.9 g/dL (6.4-8.2)
== END | disposition home or self-care (01) ==
LOC: LAB 09:04
PROVIDERS: ATTEND Internal Medicine
DX: D64.9 Anemia, unspecified (principal); E03.9 Hypothyroidism, unspecified; E11.9 Type 2 diabetes mellitus without complications
CPT/HCPCS: 36415; 80053; 83036; 84443; 85025

== ENCOUNTER → 2020-01-08 | Outpatient (CLI) | payer MEDICARE, MEDICAID ==
[2020-01-08 16:18] LABS: Albumin 3.4 g/dL (3.4-5.0); Calcium 8.8 mg/dL (8.5-10.1); Magnesium 2.1 mg/dL (1.6-2.6); Potassium 3.3 mmol/L (3.5-5.1)
[2020-01-08 16:21] LABS: BUN/Creatinine Ratio 7.5; Bilirubin, Total 1.7 mg/dL (0.2-1.0); Total Protein 6.5 g/dL (6.4-8.2)
== END | disposition home or self-care (01) ==
LOC: LAB 11:07
PROVIDERS: ATTEND Internal Medicine
DX: E83.40 Disorders of magnesium metabolism, unspecified (principal); I10 Essential (primary) hypertension
CPT/HCPCS: 36415; 80053; 83735

== ENCOUNTER → 2020-05-19 | Outpatient (CLI) | payer MEDICARE, MEDICAID | END | disposition home or self-care (01) | LOC: LAB 12:01 | PROVIDERS: ATTEND Internal Medicine | DX: E03.9 Hypothyroidism, unspecified (principal) | CPT/HCPCS: 36415; 84443 ==

== ENCOUNTER → 2020-05-26 | Outpatient (CLI) | payer MEDICARE ==
[2020-05-26 08:19] LABS: Basophils # (auto) 0.1 10 ^3/uL (0-0.2); Basophils % (auto) 1.2 % (0.0-2.0); Eosinophils # (auto) 0.1 10 ^3/uL (0-0.8); Eosinophils % (auto) 3.6 % (0.0-7.0); Hematocrit 37.4 % (36.0-46.0); Hemoglobin 12.3 g/dL (12.2-16.2); Lymphocytes # (auto) 1.1 10 ^3/uL (0.4-5.4); Lymphocytes % (auto) 27.9 % (10.0-50.0); Mean Corpuscular Hemoglobin 27.7 pg (28.0-32.0); Mean Corpuscular Hgb Conc. 32.8 g/dL (32.0-36.0); Mean Corpuscular Volume 84.6 fL (80.0-100.0); Monocytes # (auto) 0.4 10 ^3/uL (0-1.3); Monocytes % (auto) 9.2 % (0.0-12.0); Neutrophils # (auto) 2.4 10 ^3/uL (1.6-8.6); Neutrophils % (auto) 58.1 % (37.0-80.0); Platelet Count (auto) 199 10^3/uL (140-450); Red Blood Cells 4.42 10^6/uL (4.0-5.20); Red Cell Distribution Width 14.8 % (11.8-14.3); White Blood Cell 4.1 10^3/uL (4.4-10.8)
[2020-05-26 08:32] LABS: INR 1.03 (0.9-1.15)
[2020-05-26 09:19] LABS: Cholesterol 110 mg/dL (< 200)
[2020-05-26 09:21] LABS: HDL Cholesterol 58 mg/dL (40-59); LDL Cholesterol 49 mg/dL (< 100); Triglycerides 57 mg/dL (< 150)
[2020-05-27 09:44] LABS: Hepatitis B Surface Antibody Negative
[2020-05-27 10:17] LABS: Hepatitis A Total Antibody Positive
[2020-05-27 11:33] LABS: Hepatitis B Core Total AB Negative; Hepatitis B Surface Antigen Negative (Negative)
[2020-05-27 11:34] LABS: Hepatitis C Antibody Negative (Negative)
== END | disposition home or self-care (01) ==
LOC: LAB 07:48
PROVIDERS: ATTEND Internal Medicine Gastroenterology
DX: R94.5 Abnormal results of liver function studies (principal); I10 Essential (primary) hypertension; E11.9 Type 2 diabetes mellitus without complications
CPT/HCPCS: 36415; 80061; 82728; 83036; 85025; 85610; 86038; 86704; 86706; 86708; 86803; 87340; 87902

== ENCOUNTER → 2020-09-22 | Outpatient (CLI) | payer MEDICARE, MEDICAID ==
[2020-09-22 15:25] LABS: Basophils # (auto) 0.1 10 ^3/uL (0-0.2); Basophils % (auto) 0.7 % (0.0-2.0); Eosinophils # (auto) 0 10 ^3/uL (0-0.8); Eosinophils % (auto) 0.4 % (0.0-7.0); Hematocrit 42.1 % (36.0-46.0); Hemoglobin 14.3 g/dL (12.2-16.2); Lymphocytes # (auto) 1.3 10 ^3/uL (0.4-5.4); Lymphocytes % (auto) 16.1 % (10.0-50.0); Mean Corpuscular Hemoglobin 27.7 pg (28.0-32.0); Mean Corpuscular Hgb Conc. 33.9 g/dL (32.0-36.0); Mean Corpuscular Volume 81.7 fL (80.0-100.0); Monocytes # (auto) 0.7 10 ^3/uL (0-1.3); Monocytes % (auto) 8.3 % (0.0-12.0); Neutrophils # (auto) 6.1 10 ^3/uL (1.6-8.6); Neutrophils % (auto) 74.5 % (37.0-80.0); Nucleated Red Blood Cells % 0.2 %; Platelet Count (auto) 245 10^3/uL (140-450); Red Blood Cells 5.16 10^6/uL (4.0-5.20); Red Cell Distribution Width 15.5 % (11.8-14.3); White Blood Cell 8.2 10^3/uL (4.4-10.8)
[2020-09-22 15:26] LABS: Urine Blood Negative /uL (Negative); Urine Specific Gravity 1.013 (1.001-1.035)
[2020-09-22 15:45] LABS: Free T4 (Free Thyroxine) 1.71 ng/dL (0.89-1.76)
[2020-09-22 15:50] LABS: Albumin 3.8 g/dL (3.4-5.0); Calcium 9.1 mg/dL (8.5-10.1)
[2020-09-22 16:24] LABS: Bilirubin, Total 2.4 mg/dL (0.2-1.0)
[2020-09-22 16:28] LABS: Potassium 2.8 mmol/L (3.5-5.1)
== END | disposition home or self-care (01) ==
LOC: Rad HDHVI 11:36
PROVIDERS: ATTEND Internal Medicine Cardiovascular Disease
DX: I11.9 Hypertensive heart disease without heart failure (principal); R05 Cough; I70.0 Atherosclerosis of aorta; D51.3 Other dietary vitamin B12 deficiency anemia; E11.9 Type 2 diabetes mellitus without complications; E55.9 Vitamin D deficiency, unspecified; R00.2 Palpitations; R53.1 Weakness; R30.0 Dysuria
CPT/HCPCS: 36415; 71046; 80053; 80061; 81003; 82306; 82607; 83036; 84439; 84443; 85025; 87086

== ENCOUNTER → 2020-09-23 | Outpatient (CLI) | payer MEDICARE, MEDICAID ==
[~2020-09-23] VITALS: Ht 167.6 cm; Wt 84.4 kg
[~2020-09-23] MED LIST changes: +ADENOSINE 71 MG in GIVE UN-DILUTED 0 ML IV ONE; +ADENOSINE 90 MG/30 ML INJ IV ONE; +DIGOXIN 0.25 MG TAB ONE; +DIGOXIN 0.25 MG TAB PO ONE; +POTASSIUM EFFERVESENT TAB 25 MEQ ONE; +POTASSIUM EFFERVESENT TAB 25 MEQ PO ONE
[2020-09-23 08:00] VITALS: BP 109/84
[2020-09-23 10:15] VITALS: BP 127/76
== END | disposition home or self-care (01) ==
LOC: Rad HDHVI 08:06
PROVIDERS: ATTEND Internal Medicine Cardiovascular Disease
DX: I11.0 Hypertensive heart disease with heart failure (principal); E78.5 Hyperlipidemia, unspecified; I50.43 Acute on chronic combined systolic (congestive) and diastolic (congestive) heart failure
CPT/HCPCS: 78452; 93005; 96374; 96375; A9500; G0463; J0153

== ENCOUNTER → 2020-09-24 | Outpatient (CLI) | payer MEDICARE, MEDICAID ==
[~2020-09-24] MED LIST changes: -ADENOSINE 71 MG in GIVE UN-DILUTED 0 ML IV ONE; -ADENOSINE 90 MG/30 ML INJ IV ONE; -DIGOXIN 0.25 MG TAB ONE; -DIGOXIN 0.25 MG TAB PO ONE; -POTASSIUM EFFERVESENT TAB 25 MEQ ONE; -POTASSIUM EFFERVESENT TAB 25 MEQ PO ONE
== END | disposition home or self-care (01) ==
LOC: LAB 08:14
PROVIDERS: ATTEND Internal Medicine Cardiovascular Disease
DX: R10.9 Unspecified abdominal pain (principal)
CPT/HCPCS: 36415; 84132; 87086

== ENCOUNTER → 2020-09-29 | Outpatient (CLI) | payer MEDICARE, MEDICAID | END | disposition home or self-care (01) | LOC: LAB 12:00 | PROVIDERS: ATTEND Internal Medicine Cardiovascular Disease | DX: E87.6 Hypokalemia (principal); I48.91 Unspecified atrial fibrillation | CPT/HCPCS: 36415; 80162; 84132 ==

== ENCOUNTER → 2020-10-27 | Outpatient (CLI) | payer MEDICARE, MEDICAID ==
[~2020-10-27] MED LIST changes: -DONE5TAB31 PO; +DONE5TAB80 PO
[2020-10-27 15:40] LABS: BUN/Creatinine Ratio 8.6; Calcium 8.6 mg/dL (8.5-10.1)
[2020-10-28 09:23] LABS: Hepatitis B Surface Antibody Negative
[2020-10-28 09:56] LABS: Hepatitis A Total Antibody Positive
[2020-10-28 13:18] LABS: Hepatitis B Core Total AB Negative
[2020-10-28 13:19] LABS: Hepatitis B Surface Antigen Negative (Negative); Hepatitis C Antibody Negative (Negative)
== END | disposition home or self-care (01) ==
LOC: LAB 10:32
PROVIDERS: ATTEND Internal Medicine
DX: R94.5 Abnormal results of liver function studies (principal); I48.91 Unspecified atrial fibrillation
CPT/HCPCS: 36415; 80048; 82728; 86038; 86704; 86706; 86708; 86803; 87340

== ENCOUNTER → 2020-11-30 | Outpatient (CLI) | payer MEDICARE, MEDICAID ==
[2020-11-30 11:35] LABS: Basophils # (auto) 0 10 ^3/uL (0-0.2); Basophils % (auto) 0.2 % (0.0-2.0); Eosinophils # (auto) 0.2 10 ^3/uL (0-0.8); Eosinophils % (auto) 2.7 % (0.0-7.0); Hematocrit 37.8 % (36.0-46.0); Hemoglobin 12.5 g/dL (12.2-16.2); Lymphocytes # (auto) 1.4 10 ^3/uL (0.4-5.4); Lymphocytes % (auto) 24.4 % (10.0-50.0); Mean Corpuscular Hemoglobin 28.3 pg (28.0-32.0); Mean Corpuscular Hgb Conc. 33.1 g/dL (32.0-36.0); Mean Corpuscular Volume 85.5 fL (80.0-100.0); Monocytes # (auto) 0.5 10 ^3/uL (0-1.3); Neutrophils # (auto) 3.6 10 ^3/uL (1.6-8.6); Neutrophils % (auto) 64.7 % (37.0-80.0); Platelet Count (auto) 198 10^3/uL (140-450); Red Blood Cells 4.42 10^6/uL (4.0-5.20); White Blood Cell 5.6 10^3/uL (4.4-10.8)
[2020-11-30 11:39] LABS: Albumin 3.4 g/dL (3.4-5.0); Potassium 3.5 mmol/L (3.5-5.1)
[2020-11-30 11:41] LABS: INR 1.07 (0.9-1.15)
[2020-11-30 11:48] LABS: BUN/Creatinine Ratio 9.9; Bilirubin, Total 2.2 mg/dL (0.2-1.0); Total Protein 6.8 g/dL (6.4-8.2)
[2020-11-30 15:28] LABS: Urine Blood Negative /uL (Negative); Urine Specific Gravity 1.005 (1.001-1.035)
== END | disposition home or self-care (01) ==
LOC: LAB 09:04
PROVIDERS: ATTEND Internal Medicine
DX: K44.9 Diaphragmatic hernia without obstruction or gangrene (principal); R94.5 Abnormal results of liver function studies; I11.0 Hypertensive heart disease with heart failure; I50.43 Acute on chronic combined systolic (congestive) and diastolic (congestive) heart failure; E11.9 Type 2 diabetes mellitus without complications; R63.4 Abnormal weight loss; Z79.899 Other long term (current) drug therapy
CPT/HCPCS: 36415; 80053; 80061; 81003; 82105; 82728; 83036; 85025; 85610; 87086

== ENCOUNTER → 2021-04-08 | Outpatient (CLI) | payer MEDICARE, MEDICAID ==
[~2021-04-08] MED LIST changes: -SERT-274 PO; +SERT50TA19 PO
== END | disposition home or self-care (01) ==
LOC: Rad HDHVI 08:46
PROVIDERS: ATTEND Internal Medicine
DX: M79.89 Other specified soft tissue disorders (principal); I10 Essential (primary) hypertension
CPT/HCPCS: 93970

== ENCOUNTER → 2021-09-15 | Outpatient (CLI) | payer MEDICARE, MEDICAID ==
[2021-09-15 12:34] LABS: Albumin 3.2 g/dL (3.4-5.0); Calcium 8.7 mg/dL (8.5-10.1); Potassium 4.7 mmol/L (3.5-5.1)
[2021-09-15 12:47] LABS: BUN/Creatinine Ratio 9.9; Bilirubin, Total 2.6 mg/dL (0.2-1.0); Total Protein 6.1 g/dL (6.4-8.2)
== END | disposition home or self-care (01) ==
LOC: LAB 09:28
PROVIDERS: ATTEND Internal Medicine
DX: I10 Essential (primary) hypertension (principal)
CPT/HCPCS: 36415; 80053

== ENCOUNTER → 2021-09-20 | Outpatient (CLI) | payer MEDICARE, MEDICAID ==
[2021-09-20 12:55] LABS: Calcium 8.7 mg/dL (8.5-10.1); Potassium 4.5 mmol/L (3.5-5.1)
[2021-09-20 13:00] LABS: BUN/Creatinine Ratio 11.6; Bilirubin, Total 2.2 mg/dL (0.2-1.0); Total Protein 5.8 g/dL (6.4-8.2)
== END | disposition home or self-care (01) ==
LOC: LAB 11:31
PROVIDERS: ATTEND Internal Medicine
DX: E72.20 Disorder of urea cycle metabolism, unspecified (principal); K75.9 Inflammatory liver disease, unspecified; R94.5 Abnormal results of liver function studies
CPT/HCPCS: 36415; 80053; 82140

== ENCOUNTER → 2021-10-19 | Outpatient (CLI) | payer MEDICARE, MEDICAID ==
[2021-10-19 11:27] LABS: Basophils # (auto) 0 10 ^3/uL (0-0.2); Basophils % (auto) 0.4 % (0.0-2.0); Eosinophils # (auto) 0 10 ^3/uL (0-0.8); Eosinophils % (auto) 0.5 % (0.0-7.0); Hematocrit 38.5 % (36.0-46.0); Hemoglobin 12.4 g/dL (12.2-16.2); Lymphocytes # (auto) 1.8 10 ^3/uL (0.4-5.4); Lymphocytes % (auto) 23.2 % (10.0-50.0); Mean Corpuscular Hemoglobin 27.7 pg (28.0-32.0); Mean Corpuscular Hgb Conc. 32.2 g/dL (32.0-36.0); Monocytes # (auto) 0.6 10 ^3/uL (0-1.3); Neutrophils # (auto) 5.5 10 ^3/uL (1.6-8.6); Neutrophils % (auto) 68.9 % (37.0-80.0); Nucleated Red Blood Cells % 0.1 %; Red Blood Cells 4.47 10^6/uL (4.0-5.20); Red Cell Distribution Width 18.8 % (11.8-14.3); White Blood Cell 7.9 10^3/uL (4.4-10.8)
[2021-10-19 11:50] LABS: Potassium 4.6 mmol/L (3.5-5.1)
[2021-10-19 11:57] LABS: Albumin 2.6 g/dL (3.4-5.0); BUN/Creatinine Ratio 14.6; Calcium 9.1 mg/dL (8.5-10.1)
[2021-10-19 12:00] LABS: Bilirubin, Total 2.9 mg/dL (0.2-1.0); Total Protein 5.9 g/dL (6.4-8.2)
== END | disposition home or self-care (01) ==
LOC: LAB 09:37
PROVIDERS: ATTEND Internal Medicine
DX: D64.9 Anemia, unspecified (principal)
CPT/HCPCS: 36415; 80053; 85025

== ENCOUNTER → 2021-10-21 | Outpatient (CLI) | payer MEDICARE, MEDICAID | END | disposition home or self-care (01) | LOC: Rad HDHVI 14:34 | PROVIDERS: ATTEND Internal Medicine | DX: I82.401 Acute embolism and thrombosis of unspecified deep veins of right lower extremity (principal); R60.0 Localized edema | CPT/HCPCS: 93971 ==

== ENCOUNTER → 2021-11-01 | Outpatient (CLI) | payer MEDICARE, MEDICAID ==
[2021-11-01 11:35] LABS: Potassium 3.4 mmol/L (3.5-5.1)
[2021-11-01 11:36] LABS: Basophils # (auto) 0 10 ^3/uL (0-0.2); Basophils % (auto) 0.2 % (0.0-2.0); Eosinophils # (auto) 0 10 ^3/uL (0-0.8); Eosinophils % (auto) 0.2 % (0.0-7.0); Hematocrit 43.6 % (36.0-46.0); Hemoglobin 13.6 g/dL (12.2-16.2); Lymphocytes # (auto) 1.7 10 ^3/uL (0.4-5.4); Lymphocytes % (auto) 13.8 % (10.0-50.0); Mean Corpuscular Hemoglobin 27.5 pg (28.0-32.0); Mean Corpuscular Hgb Conc. 31.3 g/dL (32.0-36.0); Mean Corpuscular Volume 87.9 fL (80.0-100.0); Monocytes # (auto) 0.6 10 ^3/uL (0-1.3); Neutrophils # (auto) 10.1 10 ^3/uL (1.6-8.6); Neutrophils % (auto) 80.8 % (37.0-80.0); Red Blood Cells 4.96 10^6/uL (4.0-5.20); White Blood Cell 12.4 10^3/uL (4.4-10.8)
[2021-11-01 11:49] LABS: BUN/Creatinine Ratio 19.7; Bilirubin, Total 4.2 mg/dL (0.2-1.0); Calcium 9.3 mg/dL (8.5-10.1); Total Protein 5.9 g/dL (6.4-8.2)
== END | disposition home or self-care (01) ==
LOC: LAB 08:00
PROVIDERS: ATTEND Internal Medicine
DX: D64.9 Anemia, unspecified (principal)
CPT/HCPCS: 36415; 80053; 85025